=== PATIENT | male | born 1955 | race Hispanic/Latino ===

== ENCOUNTER 2016-06-20 09:49 | Outpatient (CLI) | payer OTHER ==
[2016-06-20 12:44] LABS: Anion Gap 15 mmol/L (10-20); BUN (Urea Nitrogen) 22 mg/dL (8.4-25.7); Calc. Creatinine Clearance 0 mL/min (70-130); Calcium 8.9 mg/dL (7.8-10.44); Carbon Dioxide 24 mmol/L (23-31); Chloride 105 mmol/L (98-107); Estimated GFR-MDRD 57
[2016-06-20 13:12] LABS: #Eosinphils 0.1 thou/uL (0.0-0.7); #Monocytes 0.3 thou/uL (0.11-0.59); #Neutrophils 2.7 thou/uL (1.40-6.50); %Basophils 0.5 % (0.0-1.0); %Eosinophils 1.5 % (0.0-10.0); %Lymphocytes 24.5 % (21.0-51.0); %Monocytes 7.4 % (0.0-10.0); Hematocrit 36.5 % (42.0-52.0); Mean Platelet Volume 8.5 fL (7.4-10.4); Red Blood Cell (RBC) Count 3.94 mill/uL (4.70-6.10)
== END 2016-06-20 09:50 | disposition home or self-care (01) ==
LOC: NAVSJIPCSP 09:49
PROVIDERS: ATTEND Internal Medicine
DX: D69.6 Thrombocytopenia, unspecified (principal); I11.9 Hypertensive heart disease without heart failure; Z79.899 Other long term (current) drug therapy
CPT/HCPCS: 36415; 80048; 85025

== ENCOUNTER 2016-07-29 10:42 | Outpatient (CLI) | payer OTHER ==
[2016-07-29 13:31] LABS: #Eosinphils 0.1 thou/uL (0.0-0.7); #Monocytes 0.3 thou/uL (0.11-0.59); #Neutrophils 2.6 thou/uL (1.40-6.50); %Basophils 0.6 % (0.0-1.0); %Eosinophils 1.3 % (0.0-10.0); %Lymphocytes 25.4 % (21.0-51.0); %Monocytes 8.3 % (0.0-10.0); %Neutrophils 64.4 % (42.0-75.0); Hemoglobin 11.4 g/dL (14.0-18.0); Mean Corpuscular HGB CONC 33.6 g/dL (32.0-36.0); Mean Corpuscular Hemoglobin 31.3 pg (27.0-31.0); Mean Corpuscular Volume 93.1 fl (80.0-94.0); PLT Morphology Comment Appears Decreased; Platelet Count 90 thou/uL (130-400); RBC Distribution Width 13.3 % (11.5-14.5); Red Blood Cell (RBC) Count 3.66 mill/uL (4.70-6.10); White Blood Cell (WBC) Count 4.1 thou/uL (4.8-10.8)
[2016-07-29 13:35] LABS: Anion Gap 15 mmol/L (10-20); BUN (Urea Nitrogen) 27 mg/dL (8.4-25.7); Calc. Creatinine Clearance 0 mL/min (70-130); Calcium 8.5 mg/dL (7.8-10.44); Carbon Dioxide 24 mmol/L (23-31); Chloride 108 mmol/L (98-107); Estimated GFR-MDRD 55; Glucose 109 mg/dL (80-115); Potassium 4.5 mmol/L (3.5-5.1); Sodium 142 mmol/L (136-145)
[2016-07-29 17:49] LABS: Folate (Folic Acid) 10.2 ng/mL (7.0-31.4)
== END 2016-07-29 10:43 ==
LOC: NAVSJIPCSP 10:42
PROVIDERS: ATTEND Internal Medicine
DX: D64.9 Anemia, unspecified (principal); D69.6 Thrombocytopenia, unspecified; E87.5 Hyperkalemia
CPT/HCPCS: 36415; 80048; 82607; 82728; 82746; 83540; 85025

== ENCOUNTER 2016-11-06 12:17 | Outpatient (CLI) | payer OTHER | END 2016-11-06 12:18 | disposition home or self-care (01) | LOC: NAVSJIPCSP 12:17 | PROVIDERS: ATTEND Internal Medicine Gastroenterology | DX: D50.0 Iron deficiency anemia secondary to blood loss (chronic) (principal) | CPT/HCPCS: 82270 ==

== ENCOUNTER 2016-11-19 08:37 | Outpatient (CLI) | payer OTHER ==
[2016-11-19 14:12] LABS: Cardiac Risk 3.4 (Less than 4.5)
== END 2016-11-19 08:38 | disposition home or self-care (01) ==
LOC: NAVSJIPCSP 08:37
PROVIDERS: ATTEND Internal Medicine
DX: E78.5 Hyperlipidemia, unspecified (principal)
CPT/HCPCS: 36415; 80061

== ENCOUNTER 2016-12-06 11:16 | Outpatient (CLI) | payer OTHER ==
[2016-12-06 12:17] LABS: #Lymphocytes 1.2 thou/uL (1.20-3.40); #Monocytes 0.4 thou/uL (0.11-0.59); #Neutrophils 3.2 thou/uL (1.40-6.50); %Basophils 0.7 % (0.0-1.0); %Eosinophils 0.6 % (0.0-10.0); %Lymphocytes 25.4 % (21.0-51.0); %Neutrophils 65.3 % (42.0-75.0); Hemoglobin 9.9 g/dL (14.0-18.0); Mean Corpuscular HGB CONC 34.1 g/dL (32.0-36.0); Mean Corpuscular Hemoglobin 30.6 pg (27.0-31.0); Mean Corpuscular Volume 89.7 fl (80.0-94.0); Mean Platelet Volume 10.7 fL (7.4-10.4); Platelet Count 94 thou/uL (130-400); RBC Distribution Width 12.9 % (11.5-14.5); Red Blood Cell (RBC) Count 3.25 mill/uL (4.70-6.10); White Blood Cell (WBC) Count 4.9 thou/uL (4.8-10.8)
== END 2016-12-06 11:17 | disposition home or self-care (01) ==
LOC: NAVSJIPCSP 11:16
PROVIDERS: ATTEND Internal Medicine Gastroenterology
DX: D50.0 Iron deficiency anemia secondary to blood loss (chronic) (principal)
CPT/HCPCS: 36415; 85025

== ENCOUNTER 2017-09-24 13:53 | Outpatient (CLI) | payer OTHER | END 2017-09-24 13:54 | disposition home or self-care (01) | LOC: NAV EKG 13:53 | PROVIDERS: ATTEND Specialist | DX: I48.91 Unspecified atrial fibrillation (principal); R00.2 Palpitations | CPT/HCPCS: 93005 ==